=== PATIENT | male | born 1990 | race Caucasian/White ===

== ENCOUNTER 2018-05-23 19:08 | Emergency (ER) | payer BC ==
[2018-05-23] MEDS ORDERED: Ibuprofen TAB* 600 MG PO ONE (19:36)
[2018-05-23] MEDS ORDERED: Ibuprofen TAB* 400 MG PO ONE (19:42)
--- NOTE | 2018-05-23 19:52 | UC ---
Headache HPI - HPI Summary HPI Summary: pt presents with c/o SANFORD that begin 2 days ago. Pt reports that he occasionally has onset of nausea and dizziness but not at time of visit to clinic. Pt has not taken BP medication today. - History Of Current Complaint Chief Complaint: UCGeneralIllness Stated Complaint: HEADACHE, NAUSEA Time Seen by Provider: 05/23/18 19:28 Hx Obtained From: Patient Onset/Duration: Sudden Onset, Lasting Days, Still Present Onset Of Symptoms: Sudden, Still Present Initially Headache Was: Moderate Currently Pain Is: Moderate Pain Intensity: 8 Character: Dull Location of Headache: Diffuse Aggravating Factor(s): Nothing Allevating Factor(s): Medication - pt took 400 mg of Ibuprofen and reports he had moderate imporvement of SANFORD. Associated Signs And Symptoms: Positive: Dizziness, Nausea - Risk Factors SAH Risk Factors: Hypertension Meningitis Risk Factors: Negative SDH Risk Factors: Male Temporal Arteritis Risk Factors: Negative - Allergies/Home Medications Allergies/Adverse Reactions: Allergies Allergy/AdvReac Type Severity Reaction Status Date / Time No Known Allergies Allergy Verified 05/23/18 19:20 Home Medications: Home Medications Lisinopril TAB* [Prinivil TAB*] 5 mg PO DAILY 05/23/18 [History Confirmed ] amLODIPine TAB* [Norvasc 5 mg TAB*] 10 mg PO DAILY 05/23/18 [History Confirmed 05/23/18] PMH/Surg Hx/FS Hx/Imm Hx Previously Healthy: Yes Cardiovascular History: Hypertension - Surgical History Surgical History: Yes Surgery Procedure, Year, and Place: hernia repairs x 2 - Family History Known Family History: Positive: Cardiac Disease - Social History Occupation: Employed Full-time Lives: With Family Alcohol Use: Rare Substance Use Type: None Smoking Status (MU): Never Smoked Tobacco Have You Smoked in the Last Year: No Review of Systems Constitutional: Negative Skin: Negative Eyes: Negative ENT: Negative Respiratory: Negative Cardiovascular: Negative Gastrointestinal: Negative Genitourinary: Negative Motor: Negative Neurovascular: Negative Musculoskeletal: Negative Neurological: Headache Psychological: Negative Is Patient Immunocompromised?: No All Other Systems Reviewed And Are Negative: Yes Physical Exam Triage Information Reviewed: Yes Appearance: Well-Appearing Vital Signs: Initial Vital Signs Temp 99.8 F 05/23/18 19:22 Pulse 115 05/23/18 19:22 Resp 20 10/12/18 19:22 BP 159/103 05/23/18 19:22 Pulse Ox 97 05/23/18 19:22 Vital Signs Reviewed: Yes Eye Exam: Normal ENT Exam: Normal Dental Exam: Normal Neck exam: Normal Respiratory Exam: Normal Cardiovascular Exam: Normal Musculoskeletal Exam: Normal Neurological Exam: Normal Neurological: Positive: Alert Psychological Exam: Normal Skin Exam: Normal Headache Course/Dx - Course Course Of Treatment: Pt was instructed to take his hyprtension medication as soon as he got home. Pt verbalized understanding and agreed to plan of care. - Differential Dx/Diagnosis Differential Diagnosis/HQI/PQRI: Migraine, Tension Headache Provider Diagnoses: Headache. elevated blood pressure Discharge - Sign-Out/Discharge Documenting (check all that apply): Patient Departure All imaging exams completed and their final reports reviewed: No Studies - Discharge Plan Condition: Stable Disposition: HOME Patient Education Materials: Acute Headache (ED) Referrals: Tabitha Shahid MD [Primary Care Provider] - As Soon As Possible Additional Instructions: Please take your high blood pressure immediately when you get home. Please follow up with your PCP as soon as needed. - Billing Disposition and Condition Condition: STABLE Disposition: Home
== END 2018-05-23 20:12 | disposition home or self-care (01) ==
LOC: UCCORT 19:08
DX: R51 Headache (principal); I10 Essential (primary) hypertension
CPT/HCPCS: 99202; A9270-GY; G0463